=== PATIENT | male | born 1955 | race Caucasian/White ===

== ENCOUNTER 2019-11-14 08:04 | Outpatient (CLI) | payer MEDICARE ==
[~2019-11-14] VITALS: Ht 185 cm; Wt 76.2 kg
[2019-11-14] MEDS ORDERED: MULT1CAP27 PO (08:15)
[2019-11-14] MEDS ORDERED: LISI10TA2 PO (08:15)
[2019-11-14] MEDS ORDERED: CALC500T7 PO (08:20)
[2019-11-14] MEDS ORDERED: CA C PO (08:20)
[2019-11-14 08:22] VITALS: BP 202/125
== END 2019-11-14 09:45 | disposition home or self-care (01) ==
LOC: PREOP 08:04
PROVIDERS: ATTEND Surgery
DX: Z01.818 Encounter for other preprocedural examination (principal)
CPT/HCPCS: 87081